=== PATIENT | female | born 1990 | race Two or more races ===

== ENCOUNTER 2020-09-21 16:46 | Emergency (ER) | payer MEDICAID, OTHER ==
[~2020-09-21] VITALS: Ht 162.6 cm; Wt 59.0 kg
[2020-09-21 19:53] VITALS: BP 130/55
== END 2020-09-21 19:54 | disposition home or self-care (01) ==
LOC: ER 16:46 → EDBD 16:46 → ER 19:54
DX: S30.1XXA Contusion of abdominal wall, initial encounter (principal); J45.909 Unspecified asthma, uncomplicated; V43.52XA Car driver injured in collision with other type car in traffic accident, initial encounter; Y93.I9 Activity, other involving external motion; Y92.89 Other specified places as the place of occurrence of the external cause; Y99.8 Other external cause status
CPT/HCPCS: 74176